=== PATIENT | male | born 1960 | race Caucasian/White ===

== ENCOUNTER 2016-08-21 06:25 | Emergency (ER) | payer MEDICARE ==
[~2016-08-21] VITALS: Ht 185.4 cm; Wt 108.9 kg
[2016-08-21] MEDS ORDERED: ARIP1TAB2 (06:48)
[2016-08-21] MEDS ORDERED: ASPI1TAB PO (06:48)
[2016-08-21] MEDS ORDERED: VENL150C43 (06:48)
[2016-08-21] MEDS ORDERED: ATOR40TA (06:48)
[2016-08-21] MEDS ORDERED: TRIU1TAB (06:48)
[2016-08-21] MEDS ORDERED: ACET30TAB PO (07:56)
[2016-08-21] MEDS ORDERED: BACT800T5 PO (07:56)
[2016-08-21] MEDS ORDERED: NORCO, ANEXSIA 5/325MG TABLET (HYDROcodone/ACETAMINOPHEN) PO ONE (08:00)
[2016-08-21] MEDS ORDERED: BACTRIM 160MG/800MG DS TAB PO ONE (08:00)
[2016-08-21 08:02] VITALS: BP 122/86
== END 2016-08-21 08:05 | disposition home or self-care (01) ==
LOC: M ED 07:41
DX: L05.01 Pilonidal cyst with abscess (principal); Z88.8 Allergy status to other drugs, medicaments and biological substances; B20 Human immunodeficiency virus [HIV] disease; Z87.891 Personal history of nicotine dependence; Z88.0 Allergy status to penicillin; Z79.899 Other long term (current) drug therapy

== ENCOUNTER → 2016-09-14 | Outpatient (REF) | payer MEDICARE ==
[~2016-09-14] MED LIST: ACET30TAB PO; ARIP1TAB2; ASPI1TAB PO; ATOR40TA75; BACT800T5 PO; TRIU1TAB; VENL150C43
[2016-09-14 11:40] LABS: ALBUMIN 3.8 GM/DL (3.2-5.2); ALBUMIN/GLOBULIN RATIO 1.06 (1.00-1.93); ALKALINE PHOSPHATASE 99 U/L (45-117); ALT/SGPT 51 U/L (12-78); ANION GAP 5 MEQ/L (8-16); AST/SGOT 23 U/L (15-37); BILIRUBIN,TOTAL 0.4 MG/DL (0.2-1.0); BLOOD UREA NITROGEN 13 MG/DL (7-18); CALCIUM LEVEL 8.9 MG/DL (8.5-10.1); CARBON DIOXIDE LEVEL 27 MEQ/L (21-32); CHLORIDE LEVEL 106 MEQ/L (98-107); CHOLESTEROL LEVEL 176 MG/DL (<200); CREATININE FOR GFR 1.41 MG/DL (0.70-1.30); GLOMERULAR FILTRATION RATE 55.8 (>56); GLUCOSE, FASTING 147 MG/DL (70-105); POTASSIUM SERUM 4.4 MEQ/L (3.5-5.1); SODIUM LEVEL 138 MEQ/L (136-145); TOTAL PROTEIN 7.4 GM/DL (6.4-8.2); TRIGLYCERIDES LEVEL 156 MG/DL (<150)
[2016-09-16 00:08] LABS: %CD3+CD4+CD8+ 1.8 % (Not Estab.); %CD3+CD4+CD8- 21.6 % (Not Estab.); %CD3+CD4-CD8+ 43.3 % (Not Estab.); ABS CD3+CD4+CD8+ 52 /uL (Not Estab.); ABS CD3+CD4+CD8- 626 /uL (Not Estab.); ABS CD3+CD4-CD8+ 1256 /uL (Not Estab.); ABS CD3+CD4-CD8- 29 /uL (Not Estab.); Eosinophils 5 % (.); HCT 44.9 % (37.5-51.0); HGB 15.5 g/dL (12.6-17.7); Monocytes 7 % (.); Neutrophils 48 % (.); WBC 7.3 x10E3/uL (3.4-10.8)
== END ==
LOC: M SFHCPLAZ 08:33
PROVIDERS: ATTEND Internal Medicine Infectious Disease
DX: B20 Human immunodeficiency virus [HIV] disease (principal); E78.2 Mixed hyperlipidemia; E11.9 Type 2 diabetes mellitus without complications
CPT/HCPCS: 36415; 80053; 80061; 81001; 83036; 86360; 86480; 86780; 87491; 87536; 87591; G0463

== ENCOUNTER → 2016-09-20 | Outpatient (CLI) | payer MEDICARE ==
[~2016-09-20] MED LIST changes: +ATOR40TA; -ATOR40TA75
--- NOTE | 2016-09-20 09:52 | REP ---
By CT of the chest without IV contrast for follow up of lung nodules: Comparison is the CT of the chest without There are subcarinal nodes measuring up to 7 mm short axis, not changed, borderline enlarged. There is an aorticopulmonic window node on the left measuring 5 mm short axis, not enlarged. The as are unchanged. The study is insensitive for hilar adenopathy in the absence of IV contrast. No axillary adenopathy. The thoracic aorta is unremarkable. Cardiac size is normal. In the upper abdomen there is no adrenal mass. The visualized upper abdominal contents demonstrate areas of geographic hepato steatosis in the liver but are otherwise unremarkable. Impression: Multiple lung nodules as described. There is a new pleural-based nodular density with linear stranding in the lung parenchyma posterolaterally in the right upper lobe on image 47. IV contrast dated 02/04/2015. The patient has the following lung nodules: Right lung: Upper lobe, image 47, 5 mm, unchanged. Upper lobe, image 52, 5 mm, unchanged. Upper lobe, image 66, 5 mm (two lesions), unchanged. Lower lobe, image 75, 5 mm, unchanged. The left lung: Upper lobe, image 57, 4 mm, previously 5 mm . Lower lobe, 5 mm, unchanged. There is a new pleural-based spiculated nodule with stranding extending into the lung parenchyma in the left upper lobe on image 47 measuring 8 mm, not present previously. There are no pleural effusions. There are borderline enlarged subcarinal nodes measuring up to 7 mm short axis, unchanged. There is a normal size aorticopulmonic window node measuring 5 mm short axis, unchanged. No axillary adenopathy. Thoracic aorta is unremarkable. Cardiac size is normal. There is no pericardial effusion. There are focal areas of geographic hepato steatosis in the liver, unchanged. There is no adrenal mass. Impression: Multiple lung nodules as described, unchanged. There is a new pleural-based 8 mm lung nodule posteriorly in the right upper lobe with stranding into the adjacent lung. Hepatic geographic hepato steatosis. Signed by Burke Jones MD 09/20/2016 09:43 A
== END ==
LOC: M RAD 06:57
PROVIDERS: ATTEND Internal Medicine Infectious Disease
DX: R91.8 Other nonspecific abnormal finding of lung field (principal); K76.0 Fatty (change of) liver, not elsewhere classified

== ENCOUNTER → 2016-12-28 | Outpatient (REF) | payer MEDICARE ==
[~2016-12-28] MED LIST changes: -ATOR40TA; +ATOR40TA75
[2016-12-28 13:38] LABS: ALBUMIN/GLOBULIN RATIO 1.18 (1.00-1.93); BILIRUBIN,TOTAL 0.3 MG/DL (0.2-1.0); CALCIUM LEVEL 9.2 MG/DL (8.5-10.1); CREATININE FOR GFR 1.49 MG/DL (0.70-1.30); GLOMERULAR FILTRATION RATE 52.1 (>56); POTASSIUM SERUM 4.2 MEQ/L (3.5-5.1); TOTAL PROTEIN 7.4 GM/DL (6.4-8.2)
[2016-12-31 00:08] LABS: Eosinophils 5 % (.); HCT 46.4 % (37.5-51.0); HGB 15.8 g/dL (12.6-17.7); Monocytes 8 % (.); Neutrophils 47 % (.); WBC 8.3 x10E3/uL (3.4-10.8)
== END ==
LOC: M SFHCPLAZ 08:44
PROVIDERS: ATTEND Internal Medicine Infectious Disease
DX: B20 Human immunodeficiency virus [HIV] disease (principal); E78.2 Mixed hyperlipidemia; E11.9 Type 2 diabetes mellitus without complications
CPT/HCPCS: 80053; 80061; 82043; 83036; 86360; 87536; G0463

== ENCOUNTER → 2017-01-04 | Outpatient (CLI) | payer MEDICARE ==
--- NOTE | 2017-01-04 08:44 | REP ---
CT of the chest without IV contrast for follow up of lung nodules: Comparison is 09/20/2016. There are the following lung nodules: Right lung: Right upper lobe, image 42, 5 mm, unchanged. Right upper lobe, image 47, 5 ml, unchanged. Right upper lobe, image 61, two lesions, 5 mm each, unchanged. Right lower lobe, image 70, 5 mm, unchanged. Left lung: Left upper lobe, image 54, 4 mm, unchanged. Left lower lobe, image 58, 5 mm, unchanged. Previously there was a pleural-based nodular density posteriorly in the right upper lobe with linear stranding in the lung parenchyma. This has resolved and is no longer present, likely focal atelectasis previously. There are borderline enlarged subcarinal nodes measuring up to 7 mm short axis, unchanged. There is a normal size aorticopulmonic window node measuring 5 mm, unchanged. The unenhanced thoracic aorta is unremarkable and unchanged. Cardiac size is normal. There is no pericardial effusion. In the upper abdomen there is geographic hepato steatosis of the liver, unchanged. The gallbladder, visualized portions of the pancreas and spleen are unremarkable. There is no adrenal mass. Impression: There are multiple lung nodules as described, unchanged from the prior study. Additionally, on the prior study there was a focal spiculation extending into the right lung from the lateral pleura which is no longer present, likely focal atelectasis previously. There are borderline enlarged subcarinal nodes, unchanged. There is a normal size right aorticopulmonic window node, unchanged. Hepato steatosis is again identified, unchanged. Signed by Burke Jones MD 01/04/2017 08:35 A
== END ==
LOC: M RAD 06:57
PROVIDERS: ATTEND Internal Medicine Pulmonary Disease
DX: R91.8 Other nonspecific abnormal finding of lung field (principal)

== ENCOUNTER → 2017-01-26 | Outpatient (CLI) | payer MEDICARE ==
[2017-01-26 18:20] LABS: YEAST LIKE CELL URINE AUTO LARGE
== END ==
LOC: M SMT 14:43
PROVIDERS: ATTEND Nurse Practitioner Women's Health
DX: R35.0 Frequency of micturition (principal); Z12.5 Encounter for screening for malignant neoplasm of prostate
CPT/HCPCS: 36415; 51798; 81001; 87086; G0103; G0463

== ENCOUNTER → 2017-08-23 | Outpatient (REF) | payer MEDICARE ==
[2017-08-23 14:46] LABS: ESTIMATED AVERAGE GLUCOSE 126 MG/DL (60-110)
[2017-08-23 14:55] LABS: ALBUMIN 3.9 GM/DL (3.2-5.2); ALBUMIN/GLOBULIN RATIO 1.03 (1.00-1.93); ALKALINE PHOSPHATASE 114 U/L (45-117); ALT/SGPT 28 U/L (12-78); ANION GAP 9 MEQ/L (8-16); AST/SGOT 19 U/L (7-37); BILIRUBIN,TOTAL 0.4 MG/DL (0.2-1.0); BLOOD UREA NITROGEN 23 MG/DL (7-18); CALCIUM LEVEL 9.2 MG/DL (8.5-10.1); CARBON DIOXIDE LEVEL 25 MEQ/L (21-32); CHLORIDE LEVEL 109 MEQ/L (98-107); CHOLESTEROL LEVEL 160 MG/DL (<200); CREATININE FOR GFR 2.31 MG/DL (0.70-1.30); GLOMERULAR FILTRATION RATE 31.4 (>56); GLUCOSE, FASTING 79 MG/DL (70-100); HDL CHOLESTEROL 32 MG/DL (>40); LDL CHOLESTEROL 93.4 MG/DL (<100); NON-HDL-C 128 MG/DL; POTASSIUM SERUM 4.4 MEQ/L (3.5-5.1); SODIUM LEVEL 143 MEQ/L (136-145); TOTAL PROTEIN 7.7 GM/DL (6.4-8.2); TRIGLYCERIDES LEVEL 173 MG/DL (<150)
[2017-08-23 16:30] LABS: APPEARANCE, URINE CLEAR (CLEAR); BACTERIA, URINE AUTO NEGATIVE (NEGATIVE); BILIRUBIN, URINE AUTO NEGATIVE (NEGATIVE); BLOOD, URINE BLOOD 1+ (NEGATIVE); COLOR, URINE YELLOW (YELLOW); GLUCOSE, URINE (UA) AUTO NEGATIVE (NEGATIVE); KETONE, URINE AUTO NEGATIVE (NEGATIVE); LEUKOCYTE ESTERASE, URINE AUTO TRACE (NEGATIVE); MUCUS, URINE SMALL (NEGATIVE); NITRITE, URINE AUTO NEGATIVE (NEGATIVE); PROTEIN, URINE AUTO NEGATIVE (NEGATIVE); RBC, URINE AUTO 4 /HPF (0-3); SPECIFIC GRAVITY URINE AUTO 1.009 (1.002-1.035); SQUAMOUS EPITHELIAL CELL UR AU 0 /HPF (0-6); UROBILINOGEN, URINE AUTO 0.2 mg/dL (0.0-2.0); WBC, URINE AUTO 5 /HPF (0-3)
[2017-08-23 16:42] LABS: CREATININE, URINE 88.8 MG/DL; MAU/CREAT RATIO 39.4 MCG/MG (0.0-30.0)
[2017-08-23 17:34] LABS: CHLAMYDIA DNA AMPLIFICATION NEGATIVE (NEGATIVE); GC DNA AMPLIFICATION NEGATIVE (NEGATIVE)
[2017-08-24 14:15] LABS: % CD8 Pos Lymph 47.3 % (12.0-35.5); %CD4 Pos Lymphs 23.6 % (30.8-58.5); ABS Basophils 0.1 x10E3/uL (0.0-0.2); ABS Eosinophils 0.5 x10E3/uL (0.0-0.4); ABS Lymphs 3.3 x10E3/uL (0.7-3.1); ABS Monocytes 0.6 x10E3/uL (0.1-0.9); ABS Neutophils 3.6 x10E3/uL (1.4-7.0); Abs CD4 Helper 779 /uL (359-1519); Abs CD8 Suppres 1561 /uL (109-897); Eosinophils 6 % (Not Estab.); HCT 42.6 % (37.5-51.0); HGB 14.8 g/dL (13.0-17.7); Immature Grans 0 % (Not Estab.); Lymphocytes 41 % (Not Estab.); MCH 33.8 pg (26.6-33.0); MCHC 34.7 g/dL (31.5-35.7); MCV 97 fL (79-97); Monocytes 8 % (Not Estab.); Neutrophils 44 % (Not Estab.); Platelets 329 x10E3/uL (150-379); RBC 4.38 x10E6/uL (4.14-5.80); RDW 14.2 % (12.3-15.4); TESTOSTERONE FREE (DIRECT) 8.2 pg/mL (7.2-24.0); WBC 8.1 x10E3/uL (3.4-10.8)
[2017-08-25 14:13] LABS: HIV-1 RNA PCR QUANT 2 LC550285 <20 copies/mL (.)
== END ==
LOC: M SFHCPLAZ 10:42
DX: B20 Human immunodeficiency virus [HIV] disease (principal); E78.2 Mixed hyperlipidemia; E11.9 Type 2 diabetes mellitus without complications; N52.1 Erectile dysfunction due to diseases classified elsewhere; Z23 Encounter for immunization
CPT/HCPCS: 84403

== ENCOUNTER → 2017-08-25 | Outpatient (CLI) | payer MEDICARE | LOC: M RAD 16:04 | DX: R91.1 Solitary pulmonary nodule (principal) | CPT/HCPCS: 71250 ==

== ENCOUNTER → 2017-09-02 | Outpatient (CLI) | payer MEDICARE | LOC: M RAD 09:37 | DX: N18.3 Chronic kidney disease, stage 3 (moderate) (principal) | CPT/HCPCS: 76775 ==

== ENCOUNTER → 2018-01-10 | Outpatient (REF) | payer MEDICARE ==
[2018-01-10 11:50] LABS: AMORPHOUS SEDIMENT SMALL (NEGATIVE); APPEARANCE, URINE CLEAR (CLEAR); BACTERIA, URINE AUTO NEGATIVE (NEGATIVE); BILIRUBIN, URINE AUTO NEGATIVE (NEGATIVE); BLOOD, URINE BLOOD NEGATIVE (NEGATIVE); COLOR, URINE YELLOW (YELLOW); GLUCOSE, URINE (UA) AUTO NEGATIVE (NEGATIVE); KETONE, URINE AUTO NEGATIVE (NEGATIVE); LEUKOCYTE ESTERASE, URINE AUTO 1+ (NEGATIVE); MUCUS, URINE SMALL (NEGATIVE); NITRITE, URINE AUTO NEGATIVE (NEGATIVE); PROTEIN, URINE AUTO NEGATIVE (NEGATIVE); RBC, URINE AUTO 1 /HPF (0-3); SPECIFIC GRAVITY URINE AUTO 1.015 (1.002-1.035); SQUAMOUS EPITHELIAL CELL UR AU 0 /HPF (0-6); UROBILINOGEN, URINE AUTO 0.2 mg/dL (0.0-2.0); WBC, URINE AUTO 10 /HPF (0-3)
[2018-01-10 12:12] LABS: ALBUMIN 3.7 GM/DL (3.2-5.2); ALBUMIN/GLOBULIN RATIO 0.95 (1.00-1.93); ALKALINE PHOSPHATASE 112 U/L (45-117); ALT/SGPT 32 U/L (12-78); ANION GAP 5 MEQ/L (8-16); AST/SGOT 22 U/L (7-37); BILIRUBIN,TOTAL 0.3 MG/DL (0.2-1.0); BLOOD UREA NITROGEN 22 MG/DL (7-18); CALCIUM LEVEL 8.6 MG/DL (8.5-10.1); CARBON DIOXIDE LEVEL 28 MEQ/L (21-32); CHLORIDE LEVEL 108 MEQ/L (98-107); CHOLESTEROL LEVEL 173 MG/DL (<200); CHOLESTEROL RISK RATIO 4.435 (<5); GLUCOSE, FASTING 81 MG/DL (70-100); HDL CHOLESTEROL 39 MG/DL (>40); LDL CHOLESTEROL 105 MG/DL (<100); NON-HDL-C 134 MG/DL; POTASSIUM SERUM 4.6 MEQ/L (3.5-5.1); PSA SCREENING 1.72 NG/ML (< 4.0); SODIUM LEVEL 141 MEQ/L (136-145); TOTAL PROTEIN 7.6 GM/DL (6.4-8.2); TRIGLYCERIDES LEVEL 145 MG/DL (<150)
[2018-01-10 12:33] LABS: ESTIMATED AVERAGE GLUCOSE 117 MG/DL (60-110); HEMOGLOBIN A1c 5.7 %
[2018-01-13 00:24] LABS: % CD8 Pos Lymph 48.8 % (12.0-35.5); %CD4 Pos Lymphs 25.6 % (30.8-58.5); ABS Basophils 0.1 x10E3/uL (0.0-0.2); ABS Eosinophils 0.3 x10E3/uL (0.0-0.4); ABS Lymphs 2.9 x10E3/uL (0.7-3.1); ABS Monocytes 0.5 x10E3/uL (0.1-0.9); ABS Neutophils 4.2 x10E3/uL (1.4-7.0); Abs CD4 Helper 742 /uL (359-1519); Abs CD8 Suppres 1415 /uL (109-897); CD4/CD8 Ratio 0.52 (0.92-3.72); Eosinophils 4 % (Not Estab.); HCT 44.4 % (37.5-51.0); HGB 15.3 g/dL (13.0-17.7); HIV-1 RNA PCR QUANT 2 LC550285 <20 copies/mL (.); Immature Grans 0 % (Not Estab.); Lymphocytes 36 % (Not Estab.); MCH 34.5 pg (26.6-33.0); MCHC 34.5 g/dL (31.5-35.7); MCV 100 fL (79-97); Monocytes 6 % (Not Estab.); Neutrophils 53 % (Not Estab.); Platelets 309 x10E3/uL (150-379); RBC 4.43 x10E6/uL (4.14-5.80); RDW 14.5 % (12.3-15.4)
== END ==
LOC: M SFHCPLAZ 09:18
DX: B20 Human immunodeficiency virus [HIV] disease (principal); E78.2 Mixed hyperlipidemia; N40.1 Benign prostatic hyperplasia with lower urinary tract symptoms; J44.9 Chronic obstructive pulmonary disease, unspecified; M19.90 Unspecified osteoarthritis, unspecified site; D01.3 Carcinoma in situ of anus and anal canal; F33.1 Major depressive disorder, recurrent, moderate; R91.8 Other nonspecific abnormal finding of lung field; E11.9 Type 2 diabetes mellitus without complications; N18.3 Chronic kidney disease, stage 3 (moderate)
CPT/HCPCS: 80053

== ENCOUNTER → 2018-08-29 | Outpatient (REF) | payer MEDICARE ==
[~2018-08-29] MED LIST changes: +ACET-716 PO; -ACET30TAB PO; -ASPI1TAB PO; +ASPI81TA26 PO
[2018-08-29 14:17] LABS: ALBUMIN 4.1 GM/DL (3.2-5.2); ALT/SGPT 46 U/L (12-78); BILIRUBIN,TOTAL 0.4 MG/DL (0.2-1.0); BLOOD UREA NITROGEN 21 MG/DL (7-18); CALCIUM LEVEL 9.2 MG/DL (8.5-10.1); CARBON DIOXIDE LEVEL 28 MEQ/L (21-32); CHLORIDE LEVEL 108 MEQ/L (98-107); CHOLESTEROL LEVEL 182 MG/DL (<200); CHOLESTEROL RISK RATIO 5.352 (<5); CREATININE FOR GFR 1.91 MG/DL (0.70-1.30); GLUCOSE, FASTING 105 MG/DL (70-100); HDL CHOLESTEROL 34 MG/DL (>40); LDL CHOLESTEROL 94 MG/DL (<100); NON-HDL-C 148 MG/DL; POTASSIUM SERUM 4.2 MEQ/L (3.5-5.1); SODIUM LEVEL 142 MEQ/L (136-145); TOTAL PROTEIN 7.4 GM/DL (6.4-8.2); TRIGLYCERIDES LEVEL 270 MG/DL (<150)
[2018-09-01 00:06] LABS: % CD8 Pos Lymph 51.5 % (12.0-35.5); %CD4 Pos Lymphs 25.3 % (30.8-58.5); ABS Basophils 0.1 x10E3/uL (0.0-0.2); ABS Eosinophils 0.4 x10E3/uL (0.0-0.4); ABS Lymphs 3.3 x10E3/uL (0.7-3.1); ABS Monocytes 0.6 x10E3/uL (0.1-0.9); ABS Neutophils 4.6 x10E3/uL (1.4-7.0); Abs CD4 Helper 835 /uL (359-1519); Abs CD8 Suppres 1700 /uL (109-897); CD4/CD8 Ratio 0.49 (0.92-3.72); Eosinophils 5 % (Not Estab.); HCT 44.8 % (37.5-51.0); HGB 15.2 g/dL (13.0-17.7); HIV-1 RNA PCR QUANT 2 LC550285 <20 copies/mL (.); Immature Grans 0 % (Not Estab.); Lymphocytes 37 % (Not Estab.); MCH 33.9 pg (26.6-33.0); MCHC 33.9 g/dL (31.5-35.7); MCV 100 fL (79-97); Monocytes 6 % (Not Estab.); Neutrophils 51 % (Not Estab.); Platelets 321 x10E3/uL (150-450); RBC 4.49 x10E6/uL (4.14-5.80); RDW 14.3 % (12.3-15.4); WBC 8.9 x10E3/uL (3.4-10.8)
== END ==
LOC: M SFHCPLAZ 11:11
PROVIDERS: ATTEND Internal Medicine Infectious Disease
DX: B20 Human immunodeficiency virus [HIV] disease (principal); F33.1 Major depressive disorder, recurrent, moderate; E78.2 Mixed hyperlipidemia
CPT/HCPCS: 36415; 80053; 80061; 86360; 86480; 86780; 87536; G0463

== ENCOUNTER → 2018-08-30 | Outpatient (REF) | payer MEDICARE ==
[2018-08-30 13:43] LABS: BASO # 0.1 10^3/uL (0.0-0.2); BASO % 1.2 % (0.0-1.0); EOS # 0.4 10^3/uL (0.0-0.50); EOS % 4.7 % (0.0-3.0); HEMATOCRIT 42.1 % (42.0-52.0); HEMOGLOBIN 14.3 g/dl (13.5-17.5); LYMPH # 3.1 10^3/uL (1.5-4.5); LYMPH % 37.7 % (24.0-44.0); MEAN CORPUSCULAR HEMOGLOBIN 33.6 pg (27.0-33.0); MEAN CORPUSCULAR VOLUME 99.1 fl (80.0-96.0); MONO # 0.6 10^3/uL (0.0-0.8); MONO % 6.6 % (0.0-5.0); NEUTROPHILS # 4.1 10^3/uL (1.8-7.7); NEUTROPHILS % 49.4 % (36.0-66.0); PLATELET COUNT, AUTOMATED 317 10^3/uL (150-450); RED BLOOD COUNT 4.25 10^6/uL (4.30-6.10); WHITE BLOOD COUNT 8.3 10^3/uL (4.0-10.0)
== END ==
LOC: M LAB REF 13:23
PROVIDERS: ATTEND Internal Medicine Nephrology
DX: N18.3 Chronic kidney disease, stage 3 (moderate) (principal); E11.22 Type 2 diabetes mellitus with diabetic chronic kidney disease

== ENCOUNTER → 2019-01-02 | Outpatient (REF) | payer MEDICARE ==
[2019-01-02 11:33] LABS: HEMOGLOBIN A1c 6.1 %
[2019-01-02 11:47] LABS: ALBUMIN 3.7 GM/DL (3.2-5.2); BILIRUBIN,TOTAL 0.4 MG/DL (0.2-1.0); CALCIUM LEVEL 8.8 MG/DL (8.5-10.1); CHOLESTEROL RISK RATIO 4.941 (<5); CREATININE FOR GFR 1.94 MG/DL (0.70-1.30); GLOMERULAR FILTRATION RATE 38.2 (>56); POTASSIUM SERUM 4.2 MEQ/L (3.5-5.1); TOTAL PROTEIN 7.2 GM/DL (6.4-8.2)
[2019-01-05 00:06] LABS: %CD4 Pos Lymphs 27.1 % (30.8-58.5); ABS Basophils 0.1 x10E3/uL (0.0-0.2); ABS Eosinophils 0.5 x10E3/uL (0.0-0.4); ABS Lymphs 2.7 x10E3/uL (0.7-3.1); ABS Monocytes 0.7 x10E3/uL (0.1-0.9); ABS Neutophils 4.4 x10E3/uL (1.4-7.0); Abs CD4 Helper 732 /uL (359-1519); Abs CD8 Suppres 1350 /uL (109-897); CD4/CD8 Ratio 0.54 (0.92-3.72); Eosinophils 6 % (Not Estab.); HCT 44.4 % (37.5-51.0); HGB 15.6 g/dL (13.0-17.7); HIV-1 RNA PCR QUANT 2 LC550285 <20 copies/mL (.); Immature Grans 0 % (Not Estab.); Lymphocytes 32 % (Not Estab.); MCH 33.8 pg (26.6-33.0); MCHC 35.1 g/dL (31.5-35.7); MCV 96 fL (79-97); Monocytes 8 % (Not Estab.); Neutrophils 53 % (Not Estab.); Platelets 283 x10E3/uL (150-450); RBC 4.62 x10E6/uL (4.14-5.80); RDW 14.5 % (12.3-15.4); WBC 8.4 x10E3/uL (3.4-10.8)
== END ==
LOC: M SFHCPLAZ 08:33
PROVIDERS: ATTEND Internal Medicine Infectious Disease
DX: B20 Human immunodeficiency virus [HIV] disease (principal); N18.3 Chronic kidney disease, stage 3 (moderate); Z23 Encounter for immunization
CPT/HCPCS: 36415; 80053; 80061; 83036; 86360; 87536; 90682; G0008; G0463

== ENCOUNTER → 2019-09-24 | Outpatient (CLI) | payer MEDICARE ==
[2019-09-24 12:41] LABS: ALBUMIN 3.7 GM/DL (3.2-5.2); BILIRUBIN,TOTAL 0.4 MG/DL (0.2-1.0); CALCIUM LEVEL 9.5 MG/DL (8.5-10.1); CHOLESTEROL RISK RATIO 4.55 (<5); CREATININE FOR GFR 1.64 MG/DL (0.70-1.30); GLOMERULAR FILTRATION RATE 46.3 (>56); TOTAL PROTEIN 7.3 GM/DL (6.4-8.2)
[2019-09-24 15:17] LABS: HEMOGLOBIN A1c 9.7 %
[2019-09-27 15:17] LABS: % CD8 Pos Lymph 52.4 % (12.0-35.5); %CD4 Pos Lymphs 23.3 % (30.8-58.5); ABS Basophils 0.1 x10E3/uL (0.0-0.2); ABS Eosinophils 0.4 x10E3/uL (0.0-0.4); ABS Lymphs 2.9 x10E3/uL (0.7-3.1); ABS Monocytes 0.6 x10E3/uL (0.1-0.9); ABS Neutophils 3.9 x10E3/uL (1.4-7.0); Abs CD4 Helper 676 /uL (359-1519); Abs CD8 Suppres 1520 /uL (109-897); CD4/CD8 Ratio 0.44 (0.92-3.72); Eosinophils 5 % (Not Estab.); HCT 44.5 % (37.5-51.0); HGB 15.9 g/dL (13.0-17.7); HIV-1 RNA ULTRA 1 <20 copies/mL (.); Immature Grans 1 % (Not Estab.); Lymphocytes 36 % (Not Estab.); MCH 34.6 pg (26.6-33.0); MCHC 35.7 g/dL (31.5-35.7); MCV 97 fL (79-97); Monocytes 8 % (Not Estab.); Neutrophils 49 % (Not Estab.); Platelets 292 x10E3/uL (150-450); RDW 12.8 % (11.6-15.4); WBC 7.9 x10E3/uL (3.4-10.8)
== END ==
LOC: M PLALAB 08:43
PROVIDERS: ATTEND Internal Medicine Infectious Disease
DX: B20 Human immunodeficiency virus [HIV] disease (principal); E11.9 Type 2 diabetes mellitus without complications
CPT/HCPCS: 36415; 80053; 80061; 83036; 86360; 87536; G0463

== ENCOUNTER → 2020-01-17 | Outpatient (REF) | payer MEDICARE ==
[2020-01-17 14:46] LABS: ALBUMIN 3.7 GM/DL (3.2-5.2); BILIRUBIN,TOTAL 0.7 MG/DL (0.2-1.0); CALCIUM LEVEL 9.6 MG/DL (8.5-10.1); CHOLESTEROL RISK RATIO 4.666 (<5); CREATININE FOR GFR 1.86 MG/DL (0.70-1.30); GLOMERULAR FILTRATION RATE 39.9 (>56); POTASSIUM SERUM 4.4 MEQ/L (3.5-5.1); TOTAL PROTEIN 7.7 GM/DL (6.4-8.2)
[2020-01-17 14:58] LABS: HEMOGLOBIN A1c 10.3 %
[2020-01-19 02:07] LABS: % CD8 Pos Lymph 53.3 % (12.0-35.5); %CD4 Pos Lymphs 22.6 % (30.8-58.5); ABS Basophils 0.1 x10E3/uL (0.0-0.2); ABS Eosinophils 0.4 x10E3/uL (0.0-0.4); ABS Monocytes 0.8 x10E3/uL (0.1-0.9); ABS Neutophils 5.3 x10E3/uL (1.4-7.0); Abs CD4 Helper 678 /uL (359-1519); Abs CD8 Suppres 1599 /uL (109-897); CD4/CD8 Ratio 0.42 (0.92-3.72); Eosinophils 4 % (Not Estab.); HCT 47.8 % (37.5-51.0); HGB 16.5 g/dL (13.0-17.7); HIV-1 RNA PCR QUANT 2 LC550285 <20 copies/mL (.); Imm ABS Grans 0.1 x10E3/uL (0.0-0.1); Immature Grans 1 % (Not Estab.); Lymphocytes 32 % (Not Estab.); MCH 32.3 pg (26.6-33.0); MCHC 34.5 g/dL (31.5-35.7); MCV 94 fL (79-97); Monocytes 9 % (Not Estab.); Neutrophils 53 % (Not Estab.); Platelets 323 x10E3/uL (150-450); RBC 5.11 x10E6/uL (4.14-5.80); RDW 12.8 % (11.6-15.4); WBC 9.6 x10E3/uL (3.4-10.8)
== END ==
LOC: M SFHCPLAZ 10:15
PROVIDERS: ATTEND Internal Medicine Infectious Disease
DX: B20 Human immunodeficiency virus [HIV] disease (principal); E78.2 Mixed hyperlipidemia; E11.9 Type 2 diabetes mellitus without complications; Z23 Encounter for immunization
CPT/HCPCS: 36415; 80053; 80061; 83036; 86360; 87536; 90682; G0008; G0463

== ENCOUNTER → 2020-08-21 | Outpatient (REF) | payer MEDICARE ==
[2020-08-21 11:20] LABS: HEMOGLOBIN A1c 11.6 %
[2020-08-21 11:30] LABS: ALBUMIN 3.7 GM/DL (3.2-5.2); ALT/SGPT 108 U/L (12-78); BILIRUBIN,TOTAL 0.7 MG/DL (0.2-1.0); BLOOD UREA NITROGEN 24 MG/DL (7-18); CALCIUM LEVEL 9.6 MG/DL (8.5-10.1); CARBON DIOXIDE LEVEL 25 MEQ/L (21-32); CHLORIDE LEVEL 105 MEQ/L (98-107); CHOLESTEROL LEVEL 206 MG/DL (<200); CHOLESTEROL RISK RATIO 4.904 (<5); CREATININE FOR GFR 1.76 MG/DL (0.70-1.30); GLOMERULAR FILTRATION RATE 42.6 (>56); GLUCOSE, FASTING 263 MG/DL (70-100); HDL CHOLESTEROL 42 MG/DL (>40); LDL CHOLESTEROL 110 MG/DL (<100); NON-HDL-C 164 MG/DL; POTASSIUM SERUM 4.4 MEQ/L (3.5-5.1); SODIUM LEVEL 139 MEQ/L (136-145); TOTAL PROTEIN 8.1 GM/DL (6.4-8.2); TRIGLYCERIDES LEVEL 271 MG/DL (<150)
[2020-08-21 11:39] LABS: MALB URINE SIEMENS 35.7 MG/L; MAU/CREAT RATIO 24.1 MCG/MG (0.0-30.0)
[2020-08-21 11:48] LABS: APPEARANCE, URINE CLEAR (CLEAR); BACTERIA, URINE AUTO NEGATIVE (NEGATIVE); BILIRUBIN, URINE AUTO NEGATIVE (NEGATIVE); BLOOD, URINE BLOOD NEGATIVE (NEGATIVE); COLOR, URINE YELLOW (YELLOW); GLUCOSE, URINE (UA) AUTO 3+ mg/dL (NEGATIVE); KETONE, URINE AUTO NEGATIVE (NEGATIVE); LEUKOCYTE ESTERASE, URINE AUTO NEGATIVE (NEGATIVE); MUCUS, URINE SMALL (NEGATIVE); NITRITE, URINE AUTO NEGATIVE (NEGATIVE); PROTEIN, URINE AUTO NEGATIVE (NEGATIVE); RBC, URINE AUTO 1 /HPF (0-3); SPECIFIC GRAVITY URINE AUTO 1.028 (1.002-1.035); SQUAMOUS EPITHELIAL CELL UR AU 1 /HPF (0-6); UROBILINOGEN, URINE AUTO 0.2 mg/dL (0.0-2.0); WBC, URINE AUTO 3 /HPF (0-3)
[2020-08-23 15:07] LABS: % CD8 Pos Lymph 52.6 % (12.0-35.5); %CD4 Pos Lymphs 21.8 % (30.8-58.5); ABS Basophils 0.1 x10E3/uL (0.0-0.2); ABS Eosinophils 0.3 x10E3/uL (0.0-0.4); ABS Lymphs 3.3 x10E3/uL (0.7-3.1); ABS Monocytes 0.7 x10E3/uL (0.1-0.9); ABS Neutophils 4.8 x10E3/uL (1.4-7.0); Abs CD4 Helper 719 /uL (359-1519); Abs CD8 Suppres 1736 /uL (109-897); CD4/CD8 Ratio 0.41 (0.92-3.72); Eosinophils 4 % (Not Estab.); HCT 50.2 % (37.5-51.0); HGB 16.9 g/dL (13.0-17.7); HIV-1 RNA PCR QUANT 2 LC550285 <20 copies/mL (.); Immature Grans 0 % (Not Estab.); Lymphocytes 36 % (Not Estab.); MCH 31.6 pg (26.6-33.0); MCHC 33.7 g/dL (31.5-35.7); MCV 94 fL (79-97); Monocytes 7 % (Not Estab.); Neutrophils 52 % (Not Estab.); Platelets 315 x10E3/uL (150-450); RBC 5.34 x10E6/uL (4.14-5.80); RDW 12.5 % (11.6-15.4); WBC 9.3 x10E3/uL (3.4-10.8)
== END ==
LOC: M SFHCPLAZ 08:32
PROVIDERS: ATTEND Internal Medicine Infectious Disease
DX: B20 Human immunodeficiency virus [HIV] disease (principal); E11.9 Type 2 diabetes mellitus without complications; E78.2 Mixed hyperlipidemia; N40.1 Benign prostatic hyperplasia with lower urinary tract symptoms
CPT/HCPCS: 36415; 80053; 80061; 81001; 82043; 83036; 86360; 86780; 86803; 87490; 87536; 87590; G0103; G0463

== ENCOUNTER → 2020-12-17 | Outpatient (CLI) | payer MEDICARE ==
[~2020-12-17] MED LIST changes: -ARIP1TAB2; +ARIP1TAB43
[2020-12-17 14:06] LABS: HEMOGLOBIN A1c 9.2 %
[2020-12-17 14:20] LABS: ALBUMIN 3.7 GM/DL (3.2-5.2); BILIRUBIN,TOTAL 0.5 MG/DL (0.2-1.0); CALCIUM LEVEL 9.7 MG/DL (8.5-10.1); CHOLESTEROL RISK RATIO 4.4 (<5); CREATININE FOR GFR 1.94 MG/DL (0.70-1.30); GLOMERULAR FILTRATION RATE 37.9 (>56); POTASSIUM SERUM 4.7 MEQ/L (3.5-5.1); TOTAL PROTEIN 7.7 GM/DL (6.4-8.2)
[2020-12-17 14:26] LABS: CREATININE, URINE 80.7 MG/DL; MAU/CREAT RATIO 14.8 MCG/MG (0.0-30.0)
== END ==
LOC: M PLALAB 09:29
PROVIDERS: ATTEND Nurse Practitioner Family
DX: E11.65 Type 2 diabetes mellitus with hyperglycemia (principal); E78.2 Mixed hyperlipidemia; N40.1 Benign prostatic hyperplasia with lower urinary tract symptoms
CPT/HCPCS: 36415; 80053; 80061; 82043; 83036; G0103

== ENCOUNTER → 2020-12-17 | Outpatient (CLI) | payer MEDICARE ==
[2020-12-17 14:16] LABS: ALBUMIN 3.8 GM/DL (3.2-5.2); BILIRUBIN,DIRECT 0.2 MG/DL (0.0-0.2); BILIRUBIN,TOTAL 0.5 MG/DL (0.2-1.0); CALCIUM LEVEL 9.7 MG/DL (8.5-10.1); CREATININE FOR GFR 1.93 MG/DL (0.70-1.30); GLOMERULAR FILTRATION RATE 38.1 (>56); POTASSIUM SERUM 4.6 MEQ/L (3.5-5.1); TOTAL PROTEIN 7.6 GM/DL (6.4-8.2)
== END ==
LOC: M PLALAB 09:26
PROVIDERS: ATTEND Internal Medicine Endocrinology, Diabetes & Metabolism
DX: E11.22 Type 2 diabetes mellitus with diabetic chronic kidney disease (principal)

== ENCOUNTER → 2020-12-23 | Outpatient (CLI) | payer MEDICARE ==
[2020-12-23 08:35] LABS: CALCIUM LEVEL 9.8 MG/DL (8.5-10.1); CREATININE FOR GFR 1.94 MG/DL (0.70-1.30); GLOMERULAR FILTRATION RATE 37.9 (>56); POTASSIUM SERUM 4.9 MEQ/L (3.5-5.1)
== END ==
LOC: M LAB 07:48
PROVIDERS: ATTEND Internal Medicine Endocrinology, Diabetes & Metabolism
DX: E11.22 Type 2 diabetes mellitus with diabetic chronic kidney disease (principal); N18.9 Chronic kidney disease, unspecified

== ENCOUNTER → 2020-12-24 | Outpatient (REF) | payer MEDICARE ==
[2020-12-24 18:43] LABS: CREATININE, URINE 97.9 MG/DL; MALB URINE SIEMENS 23.7 MG/L; MAU/CREAT RATIO 24.2 MCG/MG (0.0-30.0)
== END ==
LOC: M LAB REF 17:51
PROVIDERS: ATTEND Nurse Practitioner Family
DX: E11.22 Type 2 diabetes mellitus with diabetic chronic kidney disease (principal)

== ENCOUNTER → 2021-01-05 | Outpatient (REF) | payer MEDICARE | LOC: M LAB REF 12:59 | PROVIDERS: ATTEND Internal Medicine Nephrology | DX: E83.42 Hypomagnesemia (principal) ==

== ENCOUNTER → 2021-01-28 | Outpatient (CLI) | payer MEDICARE ==
[2021-01-28 12:47] LABS: CALCIUM LEVEL 9.7 MG/DL (8.5-10.1); CREATININE FOR GFR 1.9 MG/DL (0.70-1.30); GLOMERULAR FILTRATION RATE 38.8 (>56); POTASSIUM SERUM 4.8 MEQ/L (3.5-5.1)
== END ==
LOC: M PLALAB 09:06
PROVIDERS: ATTEND Nurse Practitioner Family
DX: E11.22 Type 2 diabetes mellitus with diabetic chronic kidney disease (principal)

== ENCOUNTER → 2021-01-28 | Outpatient (CLI) | payer MEDICARE ==
[2021-01-28 12:44] LABS: ALBUMIN 3.6 GM/DL (3.2-5.2); ALT/SGPT 129 U/L (12-78); BILIRUBIN,TOTAL 0.4 MG/DL (0.2-1.0); BLOOD UREA NITROGEN 23 MG/DL (7-18); CALCIUM LEVEL 9.3 MG/DL (8.5-10.1); CARBON DIOXIDE LEVEL 26 MEQ/L (21-32); CHLORIDE LEVEL 103 MEQ/L (98-107); CREATININE FOR GFR 1.84 MG/DL (0.70-1.30); GLOMERULAR FILTRATION RATE 40.3 (>56); GLUCOSE, FASTING 262 MG/DL (70-100); POTASSIUM SERUM 4.7 MEQ/L (3.5-5.1); SODIUM LEVEL 135 MEQ/L (136-145); TOTAL PROTEIN 7.3 GM/DL (6.4-8.2)
[2021-01-28 13:39] LABS: HEPATITIS C VIRUS ABY INDEX < 0.0 INDEX (<0.8)
[2021-01-30 12:11] LABS: % CD8 Pos Lymph 52.4 % (12.0-35.5); %CD4 Pos Lymphs 22.5 % (30.8-58.5); ABS Basophils 0.1 x10E3/uL (0.0-0.2); ABS Eosinophils 0.3 x10E3/uL (0.0-0.4); ABS Lymphs 3.4 x10E3/uL (0.7-3.1); ABS Monocytes 0.7 x10E3/uL (0.1-0.9); ABS Neutophils 3.6 x10E3/uL (1.4-7.0); Abs CD4 Helper 765 /uL (359-1519); Abs CD8 Suppres 1782 /uL (109-897); CD4/CD8 Ratio 0.43 (0.92-3.72); Eosinophils 4 % (Not Estab.); HGB 16.8 g/dL (13.0-17.7); HIV-1 RNA PCR QUANT 2 LC550285 40 copies/mL (.); HIV-1 RNA PCR QUANT 3 LC550285 1.602 (.); Immature Grans 0 % (Not Estab.); Lymphocytes 41 % (Not Estab.); MCH 33.3 pg (26.6-33.0); MCV 95 fL (79-97); Monocytes 9 % (Not Estab.); Neutrophils 45 % (Not Estab.); Platelets 308 x10E3/uL (150-450); RBC 5.05 x10E6/uL (4.14-5.80); RDW 13.6 % (11.6-15.4); WBC 8.1 x10E3/uL (3.4-10.8)
== END ==
LOC: M PLALAB 09:08
PROVIDERS: ATTEND Internal Medicine Infectious Disease
DX: B20 Human immunodeficiency virus [HIV] disease (principal); E11.22 Type 2 diabetes mellitus with diabetic chronic kidney disease

== ENCOUNTER → 2021-02-04 | Outpatient (CLI) | payer MEDICARE ==
--- NOTE | 2021-02-04 14:02 | REP ---
INDICATION: PULMONARY NODULE. COMPARISON: 08/25/2017, 01/04/2017 TECHNIQUE: Noncontrast scanning through the chest with coronal and sagittal reconstructions provided. FINDINGS: Lung alcaraz again show bilateral 5 mm and smaller nodules which are unchanged in size and number. Is been stable for several years. I do not see new nodules, masses, calcified pleural plaque, pleural thickening or effusion. There is no bronchiectasis or bullous emphysema. The heart size is not enlarged. There is no pericardial thickening or effusion. No pathologic sized mediastinal or hilar adenopathy. The aorta has a few calcifications at the arch but no aneurysm. There is no evidence of an hiatal hernia. The right axilla shows enlarged lymph node 3.1 x 2 cm and other cm and subcentimeter nodes. A 2nd prominent node is seen a as a 2.2 x 1.6 cm. There are much smaller nodes which appear normal on the left and no supraclavicular adenopathy is identified on either side. No evidence of any chest wall mass. Chest wall musculature is symmetric and normal. Bone windows show marginal osteophytes at multiple levels in the thoracic spine without compression deformity or destructive lesion. The sternum, manubrium, medial clavicles, visualized scapulae, humeral heads and ribs without focal lesion. The upper abdomen portion of liver included was without focal lesion. However there is hepatomegaly suggested with a 25 cm AP diameter of the right lobe which is not seen in its entirety in vertical dimension. No biliary dilatation, visible hepatic mass or ascites. Gallbladder without calcified stone or mass. Spleen unremarkable. The adrenal glands, pancreas and visualized kidneys are unremarkable. Bowel loops in the upper abdomen intact. No pathologic sized adenopathy visible in the upper abdomen. IMPRESSION: There is now evidence for axillary adenopathy on the right side with the 2 prominent nodes 1 measuring 3.1 x 2 cm in the other 2.2 x 1.6 cm. Other cm and sub cm size nodes on the right and no enlarged nodes on the left. No mediastinal or upper abdominal enlarged nodes noted. No HS wall of mass or abnormality and no supraclavicular or left axillary lesion. Findings suggest the hepatomegaly with the right hepatic lobe not seen in its entirety but it does have a 25 cm AP diameter. No focal hepatic mass, biliary dilatation or ascites. No splenomegaly. The lung alcaraz again show 5 mm and smaller noncalcified nodules bilaterally which are unchanged in number and size. No new nodules. Stable benign finding. <Electronically signed by Dayron Olivo > 02/04/21 [id number]
== END ==
LOC: M RAD 10:14
PROVIDERS: ATTEND Internal Medicine Infectious Disease
DX: R91.8 Other nonspecific abnormal finding of lung field (principal); Z87.891 Personal history of nicotine dependence

== ENCOUNTER → 2021-02-17 | Outpatient (CLI) | payer MEDICARE ==
[~2021-02-17] MED LIST changes: +BASA100I SC; +LIDOCAINE 1% MDV 20ML VIAL As Ordered ONE
[2021-02-17 14:42] VITALS: BP 102/76
--- NOTE | 2021-02-17 18:15 | REP ---
INDICATION: ABNORMAL CT-AXILLARY ADENOPATHY. COMPARISON: None. TECHNIQUE: The procedure was performed under direct supervision of Dr. Quezada. The patient has a history a 3.1 x 2 cm right axillary lymph node seen on a previous CT scan dated 02/04/2021. The risks and benefits of the procedure were explained to the patient and informed consent was obtained. The right axillary lymph node was localized using ultrasound guidance. The skin was prepped and draped in a sterile fashion. 6 mL of 1% lidocaine was used as a local anesthetic. Using ultrasound guidance a 19/20 gauge coaxial needle biopsy system was inserted and advanced into the lymph node. Eight core biopsy samples were obtained and sent to the lab for analysis. Estimated blood loss: Less than 1 mL. The patient tolerated the procedure well and there were no immediate complications. After the appropriate amount of monitor convalescence the patient was discharged from the department. FINDINGS: None IMPRESSION: Ultrasound-guided right axillary lymph node biopsy. <Electronically signed by Rudi Chase > 02/17/21 1609 <Electronically signed by John Quezada > 02/17/21 1814
== END ==
LOC: M IRPRO 13:11
PROVIDERS: ATTEND Internal Medicine Infectious Disease
DX: R59.0 Localized enlarged lymph nodes (principal)

== ENCOUNTER → 2021-08-05 | Outpatient (CLI) | payer MEDICARE ==
[~2021-08-05] MED LIST changes: -LIDOCAINE 1% MDV 20ML VIAL As Ordered ONE
== END ==
LOC: M SOG 08:21
PROVIDERS: ATTEND Physician Assistant
DX: M79.645 Pain in left finger(s) (principal); M19.042 Primary osteoarthritis, left hand

== ENCOUNTER → 2021-08-07 | Outpatient (CLI) | payer MEDICARE | LOC: M LABSMTC 10:24 | PROVIDERS: ATTEND Anesthesiology | DX: Z01.812 Encounter for preprocedural laboratory examination (principal); Z20.822 Contact with and (suspected) exposure to COVID-19 ==

== ENCOUNTER 2021-08-12 07:34 | Day surgery (SDC) | payer MEDICARE ==
[~2021-08-12] VITALS: Ht 188 cm; Wt 108.9 kg
[~2021-08-12 07:34] MED LIST changes: +ABIL10TA9 PO; -ATOR40TA75; +ATOR40TA75 PO; +DOLU1TAB PO; +LIDOCAINE W/EPINEPHRINE 1% 20ML VIAL XX ONE; +METF10004 PO; +SODIUM BICARBONATE 8.4% INJ 50MEQ 50 ML VIAL XX ONE; +TAMS1CAP17 PO; +TRAZ-257 PO; -VENL150C43; +VENL150C43 PO; +ZOLP10TA2 PO
[2021-08-12 10:45] VITALS: BP 112/68
== END 2021-08-12 11:05 | disposition home or self-care (01) ==
LOC: M SDC 07:34
PROVIDERS: ATTEND Orthopaedic Surgery Hand Surgery
DX: M65.342 Trigger finger, left ring finger (principal); E78.5 Hyperlipidemia, unspecified; E10.9 Type 1 diabetes mellitus without complications; G47.00 Insomnia, unspecified; Z79.4 Long term (current) use of insulin; Z79.84 Long term (current) use of oral hypoglycemic drugs; F32.9 Major depressive disorder, single episode, unspecified; B20 Human immunodeficiency virus [HIV] disease; Z79.899 Other long term (current) drug therapy; Z87.891 Personal history of nicotine dependence; Z79.82 Long term (current) use of aspirin; Z88.0 Allergy status to penicillin; Z88.8 Allergy status to other drugs, medicaments and biological substances